=== PATIENT | female | born 1940 | race Hispanic/Latino ===

== ENCOUNTER 2018-04-12 22:28 | Emergency (ER) | payer OTHER ==
[2018-04-12] MEDS ORDERED: ASPIRIN 325 MG TABLET ONE (23:10)
[2018-04-12] MEDS ORDERED: NITROGLYCERIN 1GM/1 INCH PACKET TD ONE (23:10)
[2018-04-12 23:17] LABS: EOSINOPHILS % (AUTO) 1.2 % (0.0-8.0); HEMATOCRIT 39.1 % (36-48); LYMPHOCYTES % (AUTO) 34.2 % (21.0-51.0); MEAN CORPUSCULAR HEMOGLOBIN 31.2 pg (27.0-33.0); MEAN CORPUSCULAR HGB CONC 33.4 g/dL (32.0-36.0); MEAN CORPUSCULAR VOLUME 93.4 fL (79-99); MONOCYTES % (AUTO) 7.5 % (3.0-13.0); NEUTROPHILS % (AUTO) 56.1 % (40.0-77.0); NUCLEATED RED BLOOD CELLS 0.2 % (0.0-0.19); PLATELET COUNT (AUTO) 186 K/uL (130-400); RED BLOOD CELL COUNT(AUTO) 4.19 MIL/uL (4.00-5.50); RED CELL DISTRIBUTION WIDTH 13.4 % (11.0-15.5); WHITE BLOOD COUNT (AUTO) 5.2 K/uL (4.8-10.8)
[2018-04-12 23:28] LABS: CREATININE 0.7 mg/dL (0.5-1.5); POTASSIUM 3.4 mmol/L (3.5-5.1)
[2018-04-12 23:29] LABS: INR 0.98 (0.85-1.15); PARTIAL THROMBOPLASTIN TIME 26.4 SEC (26.3-35.5); PROTHROMBIN TIME 10.3 SEC (9.6-11.6)
[2018-04-12 23:43] LABS: ALBUMIN 3.5 g/dL (3.5-5.0); BILIRUBIN,TOTAL 0.4 mg/dL (0.2-1.0); TOTAL PROTEIN, SERUM 8.2 g/dL (6.0-8.3)
[2018-04-13 00:01] LABS: B-TYPE NATRIURETIC PEPTIDE 63 pg/mL (0-100)
[2018-04-13 00:22] LABS: APPEARANCE,URINE Clear (CLEAR); BILIRUBIN,URINE Negative (NEGATIVE); COLOR,URINE Yellow (YELLOW); GLUCOSE, URINE (UA) Negative (NEGATIVE); KETONES,URINE Negative (NEGATIVE); LEUKOCYTE ESTERASE ,URINE Negative (NEGATIVE); NITRATE,URINE Negative (NEGATIVE); OCCULT BLOOD,URINE Negative (NEGATIVE); PH,URINE 7.5 (5.0-8.0); PROTEIN,URINE Negative (NEGATIVE)
== END 2018-04-13 01:53 | disposition home or self-care (01) ==
LOC: EDH 22:28
DX: R07.89 Other chest pain (principal); R06.00 Dyspnea, unspecified; R03.0 Elevated blood-pressure reading, without diagnosis of hypertension; Z90.710 Acquired absence of both cervix and uterus
CPT/HCPCS: 36415; 71045; 80053; 81003; 82550; 83880; 84484; 85025; 85610; 85730; 87804; 93005

== ENCOUNTER 2018-12-18 19:43 | Observation (INO) | payer OTHER ==
[~2018-12-18] VITALS: Ht 121.9 cm; Wt 58.3 kg
[2018-12-18 20:01] LABS: BASOPHILS % (AUTO) 0.1 % (0.0-5.0); EOSINOPHILS % (AUTO) 0.4 % (0.0-8.0); LYMPHOCYTES % (AUTO) 8.4 % (21.0-51.0); MEAN CORPUSCULAR HEMOGLOBIN 31.5 pg (27.0-33.0); MEAN CORPUSCULAR HGB CONC 33.4 g/dL (32.0-36.0); MEAN CORPUSCULAR VOLUME 94.1 fL (79-99); MONOCYTES % (AUTO) 3.7 % (3.0-13.0); NEUTROPHILS % (AUTO) 87.4 % (40.0-77.0); PLATELET COUNT (AUTO) 192 K/uL (130-400); RED BLOOD CELL COUNT(AUTO) 4.25 MIL/uL (4.00-5.50); RED CELL DISTRIBUTION WIDTH 13.4 % (11.0-15.5)
[2018-12-18 20:14] LABS: CREATININE 0.8 mg/dL (0.5-1.5); POTASSIUM 3.4 mmol/L (3.5-5.1)
[2018-12-18 20:15] LABS: INR 0.96 (0.85-1.15); PARTIAL THROMBOPLASTIN TIME 25.9 SEC (26.3-35.5); PROTHROMBIN TIME 10.1 SEC (9.6-11.6)
[2018-12-18 20:26] LABS: ALBUMIN 3.9 g/dL (3.5-5.0); BILIRUBIN,TOTAL 0.6 mg/dL (0.2-1.0)
[2018-12-18 21:25] LABS: APPEARANCE,URINE Cloudy (CLEAR); BILIRUBIN,URINE Negative (NEGATIVE); COLOR,URINE Yellow (YELLOW); GLUCOSE, URINE (UA) 250 mg/dL (NEGATIVE); KETONES,URINE Negative (NEGATIVE); LEUKOCYTE ESTERASE ,URINE Negative (NEGATIVE); NITRATE,URINE Negative (NEGATIVE); OCCULT BLOOD,URINE Trace (NEGATIVE); PH,URINE 8.5 (5.0-8.0); PROTEIN,URINE Trace mg/dL (NEGATIVE); UROBILINOGEN,URINE 0.2 mg/dL (0.2-1.0)
[2018-12-18 21:36] LABS: AMORPHOUS SEDIMENT,UR Moderate /LPF (None Seen); BACTERIA,URINE Few /HPF (None Seen); RBC,URINE 0-1 /HPF (0-1); SQUAMOUS EPITHELIAL CELL,UR 0-2 /HPF (0-2); WBC,URINE 0-1 /HPF (0-1)
[2018-12-19] VITALS (8 sets, daily range): BP systolic 136–166; BP diastolic 66–82
[2018-12-19] MEDS ORDERED: HYDRALAZINE HCL 20 MG/ML VIAL ONE (00:14)
[2018-12-19] MEDS ORDERED: ASPI-1026 PO (00:57)
[2018-12-19] MEDS ORDERED: LISI2.5T2 PO (00:57)
[2018-12-19] MEDS ORDERED: DONE5TAB33 PO (00:57)
[2018-12-19] MEDS ORDERED: ONDANSETRON HCL 4 MG/2 ML VIAL ONE (02:34)
[2018-12-19] MEDS: SODIUM CHLORIDE 0.9% 1000ML 1,000 ML IV SCH ×3 (02:40→22:36)
[2018-12-19] MEDS ORDERED: LACTULOSE 20 GM/30 ML UDCUP PO PRN (04:00)
[2018-12-19] MEDS ORDERED: MAG HYDROX/AL HYDROX/SIMETH ES 30 ML SUSP UDCUP PO PRN (04:00)
[2018-12-19] MEDS ORDERED: ONDANSETRON HCL 4 MG/2 ML VIAL IVP PRN (04:00)
[2018-12-19] MEDS ORDERED: NITROGLYCERIN 0.4 MG SL TAB SL PRN (04:00)
[2018-12-19] MEDS ORDERED: ACETAMINOPHEN 325 MG TAB PO PRN ×2 (04:00)
[2018-12-19 06:02] LABS: HEMATOCRIT 40.7 % (36-48); MEAN CORPUSCULAR HEMOGLOBIN 30.9 pg (27.0-33.0); MEAN CORPUSCULAR HGB CONC 32.9 g/dL (32.0-36.0); MEAN CORPUSCULAR VOLUME 93.8 fL (79-99); PLATELET COUNT (AUTO) 190 K/uL (130-400); RED BLOOD CELL COUNT(AUTO) 4.33 MIL/uL (4.00-5.50); RED CELL DISTRIBUTION WIDTH 13.3 % (11.0-15.5); WHITE BLOOD COUNT (AUTO) 14.1 K/uL (4.8-10.8)
[2018-12-19 06:13] LABS: CREATININE 0.7 mg/dL (0.5-1.5); POTASSIUM 3.6 mmol/L (3.5-5.1)
--- NOTE | 2018-12-19 06:15 | NUR ---
Critical lab-Lactic acid 3.7, called in to Dr. Angel San. Informed WBC increased from 9.0 to 14.1, no fevers, no antibiotics, currently on NS at 100cc/hr. No new orders given, states will come see patient this am.
[2018-12-19 06:27] LABS: CREATINE KINASE, TOTAL 230 U/L (21-232); MYOGLOBIN 376 ng/mL (10-92); TROPONIN I < 0.04 ng/mL (0.00-0.06)
--- NOTE | 2018-12-19 07:35 | NUR ---
ASSESSMENT ENCOUNTERED PT ASLEEP BUT AROUSEABLE, A&OX3 BUT FORGETFUL, CALM COOPERATIVE AND DOES NOT APPEAR TO BE IN ANY DISTRESS NOR ANY NEURO DEFICITS PRESENT. PT IS AMBULATORY, GAIT SLOW BUT STEADY WITH STAND BY ASSIST. PT IS NPO PENDING CT ABDOMEN AND PELVIS. PT DENIES PAIN, SOB, DIZZINESS BUT DOES C/O INTERMITTENT LLE CRAMPS AND NAUSEA. CALL LIGHT WITHIN REACH, FAMILY AT BEDSIDE.
[2018-12-19] MEDS: FAMOTIDINE/PF 20 MG/2 ML VIAL IV SCH (08:50)
[2018-12-19] MEDS: CEFTRIAXONE SODIUM 1 GM IVP SCH ×2 (08:50→21:32)
[2018-12-19] MEDS: ENOXAPARIN SODIUM 30 MG/0.3 ML SQ SCH (08:51)
[2018-12-19] MEDS ORDERED: ASPIRIN 325 MG TABLET PO SCH (09:00)
[2018-12-19] MEDS ORDERED: MAGNESIUM 2GM PREMIX 50ML 50 ML IV PRN (12:00)
[2018-12-19] MEDS ORDERED: ASPIRIN 81 MG EC TAB ONE (12:46)
[2018-12-19] MEDS ORDERED: IOHEXOL-350 75 ML VIAL IV ONE (13:23)
[2018-12-19] MEDS ORDERED: LABETALOL HCL 5 MG/ML 20ML VIAL IV PRN (14:15)
--- NOTE | 2018-12-19 15:38 | NUR ---
INITIAL: Met with pt and family this afternoon to discuss dcp. Per dtr Florencia, pt lives w her adult children. She is independent w ambulation and ADLs. Pt does not own any DME or receive services. Per pt/family dcp is for pt to return home. CM to continue to follow and wait for MD recommendations. Addendum: 12/19/18 at 1544 by CONOR KAY Amended: Links added.
[2018-12-20] MEDS: SODIUM CHLORIDE 0.9% 1000ML 1,000 ML IV SCH ×4 (03:04→14:37)
[2018-12-20 04:10] VITALS: BP 101/43
[2018-12-20 04:21] LABS: BASOPHILS % (AUTO) 0.5 % (0.0-5.0); EOSINOPHILS % (AUTO) 0.1 % (0.0-8.0); HEMATOCRIT 36.2 % (36-48); LYMPHOCYTES % (AUTO) 9.1 % (21.0-51.0); MEAN CORPUSCULAR HEMOGLOBIN 31.3 pg (27.0-33.0); MEAN CORPUSCULAR VOLUME 94.9 fL (79-99); MONOCYTES % (AUTO) 4.6 % (3.0-13.0); NEUTROPHILS % (AUTO) 85.7 % (40.0-77.0); PLATELET COUNT (AUTO) 154 K/uL (130-400); RED BLOOD CELL COUNT(AUTO) 3.81 MIL/uL (4.00-5.50); RED CELL DISTRIBUTION WIDTH 13.7 % (11.0-15.5); WHITE BLOOD COUNT (AUTO) 14.4 K/uL (4.8-10.8)
[2018-12-20 04:39] LABS: ALBUMIN 2.6 g/dL (3.5-5.0); BILIRUBIN,TOTAL 0.8 mg/dL (0.2-1.0); CREATININE 0.6 mg/dL (0.5-1.5); MAGNESIUM 2.8 mg/dL (1.80-2.40); POTASSIUM 3.6 mmol/L (3.5-5.1); TOTAL PROTEIN, SERUM 6.4 g/dL (6.0-8.3)
[2018-12-20 07:24] VITALS: BP 123/60
[2018-12-20] MEDS: CEFTRIAXONE SODIUM 1 GM IVP SCH (07:58)
[2018-12-20] MEDS: ENOXAPARIN SODIUM 30 MG/0.3 ML SQ SCH (07:59)
[2018-12-20] MEDS: FAMOTIDINE/PF 20 MG/2 ML VIAL IV SCH (07:59)
--- NOTE | 2018-12-20 08:00 | NUR ---
ASSESSMENT PT IS AAOX4 DENIES CP DENIES SOB DENIES NV AT THIS TIME. BREATHING PATTERN IS EVEN AND UNLABORED. SITTING UPRIGHT IN BED. TOLERATED BREAKFAST. FAMILY IS AT BEDSIDE, CALL LIGHT WITHIN REACH.
[2018-12-20] MEDS ORDERED: ASPIRIN 81 MG EC TAB PO SCH (09:00)
[2018-12-20 11:17] VITALS: BP 126/67
[2018-12-20 15:41] VITALS: BP 125/63
[2018-12-20] MEDS ORDERED: LEVO500T2 PO (16:54)
[2018-12-20] MEDS ORDERED: METR500T PO (16:54)
--- NOTE | 2018-12-20 17:13 | NUR ---
DR MAI ROUNDED OK TO DC PATIENT HOME, FOLLOW UP OUTPT WITH PRIMARY MD
--- NOTE | 2018-12-20 17:30 | NUR ---
DC TO HOME PATIENT AND FAMILY VERBALIZE DC INSTRUCTIONS UNDERSTANDING, AGREE TO TAKE MEDICATIONS ORDERED AND AGREE TO FOLLOW UP WITH DR CASIANO OUTPT. ALL QUESTIONS ANSWERED. PIVS REMOVED CATH TIPS INTACT, TELE PACK REMOVED. DOWN VIA WC WITH FAMILY AND NURSE AIDE TO VEHICLE.
== END 2018-12-20 17:38 | disposition home or self-care (01) ==
LOC: EDH 19:43 → EDHIP 23:23 → INTOOBSV 23:23 → 2DH 12-19 00:38
PROVIDERS: ADMIT Family Medicine; ATTEND Family Medicine
DX: A41.9 Sepsis, unspecified organism (principal); K80.20 Calculus of gallbladder without cholecystitis without obstruction; I10 Essential (primary) hypertension; F03.90 Unspecified dementia, unspecified severity, without behavioral disturbance, psychotic disturbance, mood disturbance, and anxiety; R11.2 Nausea with vomiting, unspecified; Z79.899 Other long term (current) drug therapy
CPT/HCPCS: 36415 ×3; 71045; 71275; 74176; 76705; 80048; 80053 ×2; 81001; 82150; 82550 ×3; 83605 ×2; 83735 ×2; 83874 ×2; 84484 ×3; 85025 ×2; 85027; 85378; 85610; 85730; 87040 ×2; 93005; 93970; 96361 ×2; 96365; 96366; 96372 ×2; 96375; 96376 ×2; 99291; G0378 ×41; J0360; J0696 ×3; J1650 ×2; J2405; J3475; J3490 ×2; J7030 ×4; Q9967

== ENCOUNTER 2019-01-20 07:49 | Day surgery (SDC) | payer OTHER ==
[2019-01-18 10:45] VITALS: BP 139/71
[2019-01-18 11:01] LABS: BASOPHILS % (AUTO) 0.2 % (0.0-5.0); EOSINOPHILS % (AUTO) 2.3 % (0.0-8.0); HEMATOCRIT 39.6 % (36-48); LYMPHOCYTES % (AUTO) 28.3 % (21.0-51.0); MEAN CORPUSCULAR HEMOGLOBIN 31.7 pg (27.0-33.0); MEAN CORPUSCULAR HGB CONC 33.2 g/dL (32.0-36.0); MEAN CORPUSCULAR VOLUME 95.4 fL (79-99); MONOCYTES % (AUTO) 7.9 % (3.0-13.0); NEUTROPHILS % (AUTO) 61.3 % (40.0-77.0); PLATELET COUNT (AUTO) 143 K/uL (130-400); RED BLOOD CELL COUNT(AUTO) 4.15 MIL/uL (4.00-5.50); RED CELL DISTRIBUTION WIDTH 13.9 % (11.0-15.5); WHITE BLOOD COUNT (AUTO) 4.1 K/uL (4.8-10.8)
--- NOTE | 2019-01-18 11:15 | NUR ---
CALLED DOCTOR ACEVEDO OFFICE TO NOTIFY HIM OF PATIENT TAKING ANTIBIOTICS AND BEING AT THE HOSPITAL SOMETIME IN DECEMBER , PENDING CALL BACK NOTIFIED NEIDA FROM DOCTOR ACEVEDO OFFICE.
[2019-01-18 11:36] LABS: ALBUMIN 3.8 g/dL (3.5-5.0); BILIRUBIN,DIRECT 0.2 mg/dL (0.0-0.3); BILIRUBIN,TOTAL 0.7 mg/dL (0.2-1.0); CREATININE 0.6 mg/dL (0.5-1.5); POTASSIUM 4.4 mmol/L (3.5-5.1); TOTAL PROTEIN, SERUM 8.4 g/dL (6.0-8.3)
--- NOTE | 2019-01-18 14:21 | NUR ---
Reported EKG TO DOCTOR RYDER , NO NEW ORDERS, OKAY TO CONTINUE.
[~2019-01-20] VITALS: Ht 142.2 cm; Wt 55.7 kg
[2019-01-20] VITALS (13 sets, daily range): BP systolic 96–134; BP diastolic 43–67
[~2019-01-20 07:49] MED LIST: ASPI-1026 PO; DONE5TAB33 PO; LEVO500T2 PO; LISI2.5T2 PO; METR500T PO
[2019-01-20] MEDS ORDERED: LIDOCAINE HCL MPF 1% 5ML VIAL ONE (09:04)
[2019-01-20] MEDS ORDERED: PROPOFOL 10 MG/ML 20ML VIAL IV ONE (09:05)
[2019-01-20] MEDS ORDERED: ROCURONIUM 10MG/1ML SYR 10 MG/ML ML ONE (09:05)
[2019-01-20] MEDS ORDERED: FENTANYL CITRATE PF 50 MCG/1 ML 2ML VIAL ONE (09:06)
[2019-01-20] MEDS: LACTATED RINGERS 1000ML 1,000 ML IV SCH ×2 (09:22→11:04)
[2019-01-20] MEDS ORDERED: LIDOCAINE PF 2% 5ML ABBOJECT ONE (11:08)
[2019-01-20] MEDS ORDERED: HEPARIN SODIUM 1000UNIT/ML 10ML VIAL ONE (11:17)
[2019-01-20] MEDS ORDERED: GLYCOPYRROLATE 1 MG/5 ML SYRINGE ONE (11:32)
[2019-01-20] MEDS ORDERED: PHENYLEPHRINE HCL 10 MG/ML 1ML VIAL IV ONE (11:34)
[2019-01-20] MEDS ORDERED: NEOSTIGMINE 5MG/5ML SYR IV ONE (12:09)
--- NOTE | 2019-01-20 13:25 | NUR ---
GUERLINE CHOUDHARY NOTIFIED IV DISCONTINUED. IF WE NEED ANOTHER ILL START IT. PT HOWEVER, DOING WELL, NO PAIN AND NO NAUSEA. KENRICK AGREED, IF WE NEED AN NEW IV INSERTED, SHE WILL LET ME KNOW. Addendum: 01/20/19 at 1348 by HIEN CASH RN RN Amended: Links added.
== END 2019-01-20 14:00 | disposition home or self-care (01) ==
LOC: DAH 07:49
PROVIDERS: ATTEND Surgery
DX: K80.12 Calculus of gallbladder with acute and chronic cholecystitis without obstruction (principal); I10 Essential (primary) hypertension; F03.90 Unspecified dementia, unspecified severity, without behavioral disturbance, psychotic disturbance, mood disturbance, and anxiety; Z79.2 Long term (current) use of antibiotics; Z79.82 Long term (current) use of aspirin; Z90.710 Acquired absence of both cervix and uterus; Z98.890 Other specified postprocedural states; Z79.899 Other long term (current) drug therapy
CPT/HCPCS: 36415; 47562; 80048; 80076; 85025; 88304; 93005; A4215; A4221; A4222; A4223; A4450; A4600; A4663; C1769 ×4; J1644; J2001; J2370; J2704; J2710; J3010; J3490 ×2; J7030; J7120 ×2